=== PATIENT | male | born 1960 | race African-American/Black ===

== ENCOUNTER → 2017-06-11 | Outpatient (CLI) | payer BC ==
--- NOTE | 2017-06-11 16:17 | RADRPT ---
PROCEDURE: Right knee radiographs. CLINICAL INDICATION: Right knee pain. TECHNIQUE: Three views. Weight bearing. Frontal, lateral, and patellar view. COMPARISON: No prior studies are available for comparison. FINDINGS: There is no fracture or dislocation. The soft tissues are normal. There are degenerative changes with osteophytes arising from all 3 joint compartment margins. There is mild deformity of the medial and lateral joint compartments, worse than seen previously. There is no lytic or blastic lesion. There is no radiopaque foreign body. IMPRESSION: 1. Moderate to severe degenerative changes of the right knee, worse than seen previously. 2. Otherwise unremarkable study. RPTAT: QQ .Alexander Lopez MD, MD Date Time Electronically viewed and signed by .Alexander Lopez MD, MD on 06/11/2017 16:16 .R/
--- NOTE | 2017-06-19 13:52 | HKNOTE ---
DATE OF SERVICE: 06/12/2017 MAIN COMPLAINT: Pain in the right knee. 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 I performed 2 total hip replacements on him about 9 years ago. He has been extremely pleased with the results of the surgery and has not had any further problems with his hips. He has had progressively increasing pain in the right knee. There has not been any specific history of an injury to the knee. Over the past 6 months the pain is markedly increased. The patient knows that he will need to have a right knee replacement sooner or later, but he would like to continue working, but he is not able to perform the duties of a account relationship manager at this point. PRESENT COMPLAINT: The pain in the right knee is localized to the medial and posterior aspects. He can walk about a block at a time without stopping. He is able to go up and down stairs 1 at a time. He is pain is aggravated by stair climbing, weight bearing, and excessive walking. He gets minimal rest pain or night pain. He is taking over the counter antiinflammatory medications and pain pills. He has a history of previous back problems, but currently does not have any back pain. He has never had a MRI scan of his spine and he has not seen any forest fire prevention specialist. The patient's knee pain is constantly present during the day, especially if I am make a "wrong move". He limps about 60 percent of the time. He can clip his toenails and tie his shoelaces. PAST ORTHOPEDIC HISTORY: Bilateral hip replacement approximately 9 years ago with an excellent result. PRIOR CORTISONE INTAKE: The patient has had several prior cortisone injections into the right knee. OTHER PROBLEMS: None. No other prior injuries to hips or knees, only as above. 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 He loves the work and he does not want to go on permanent disability. PAST MEDICAL HISTORY: High blood pressure. PAST SURGICAL HISTORY: Bilateral hip replacements DRUG ALLERGIES: None. MEDICATIONS: Over the counter pain medications and antiinflammatories. FAMILY HISTORY: Noncontributory. REVIEW OF SYSTEMS: Gait disturbance, hypertension, hemorrhoids, otherwise negative. HABITS: The patient does not smoke or drink alcoholic beverages. DIETARY: No beef or pork. RELATIONS MANAGER: Not listed. PHYSICAL EXAMINATION: GENERAL: The patient is remarkably fit and youthful, 57-year-old male who comes in with his 7-year-old son. VITAL SIGNS: Height 6 foot 2 inches, weight 195 pounds, blood pressure 135/60, and temperature 98.2. HIPS: Both hips have a full range of motion without pain. RIGHT KNEE: Alignment is normal. Extension lacks 5 degrees. Flexion lacks 30 degrees. Marked pain on attempted further flexion. Collateral and cruciate ligaments are intact. Three plus effusion, tender over the medial joint line. Six plus crepitus in the knee and the patellar. LEFT KNEE: Alignment is normal. Range of motion is full. All ligaments are intact. No effusion. No pain on putting the knee through range of motion. IMAGING: Plain x-rays of the right knee obtained today at the [facility] [place] for reviewed. (Reviewed). These show severe degenerative osteoarthritis of the lateral compartment with bone on bone contact. Small osteophytes and subchondral sclerosis. Mild degenerative changes in the medial compartment of the patellofemoral joint. DIAGNOSES: 1. Status post bilateral hip replacements. 2. Severe degenerative osteoarthritis of the right knee. 3. Hypertension. MANAGEMENT: After [____] his knee was aspirated and 60 cc of clear yellow fluid. This was then followed by an injection of 40 mg of Kenalog into the knee. Activities were discussed with him. 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 He does not want to give up the industry completely because he "loves the work". JOB STATUS: The patient is released to return to work with restricted duties. 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 The patient feels that he will be able to comfortably accommodate the work. 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 The patient is released to return to work with the above restrictions. He can return for repeat cortisone injections as needed, not more often than every 3 months. He fully understands that he will need to have a knee replacement at some time in the near future. He is given paperwork for [employer]. Dictated By: Larry Brewer MD /[email or web address] /Document#: [id number]
== END | disposition home or self-care (01) ==
LOC: HKI 15:44
DX: M17.11 Unilateral primary osteoarthritis, right knee (principal); I10 Essential (primary) hypertension; Z96.643 Presence of artificial hip joint, bilateral
CPT/HCPCS: 73562; G0463